=== PATIENT | female | born 1980 | race Two or more races ===

== ENCOUNTER 2020-03-04 09:24 | Emergency (ER) | payer OTHER ==
[~2020-03-04] VITALS: Ht 160 cm; Wt 68.9 kg
== END 2020-03-04 11:55 | disposition home or self-care (01) ==
LOC: ER 09:24
DX: G44.209 Tension-type headache, unspecified, not intractable (principal)

== ENCOUNTER 2021-03-17 15:27 | Emergency (ER) | payer OTHER ==
[~2021-03-17] VITALS: Ht 160 cm; Wt 65.3 kg
== END 2021-03-17 18:20 | disposition home or self-care (01) ==
LOC: ER 15:27
DX: M54.89 Other dorsalgia (principal); M41.85 Other forms of scoliosis, thoracolumbar region

== ENCOUNTER 2021-03-27 12:37 | Emergency (ER) | payer OTHER ==
[~2021-03-27] VITALS: Ht 160 cm; Wt 65.3 kg
[2021-03-27] MEDS ORDERED: ORPHENADRINE C100 MG PO (15:05)
[2021-03-27] MEDS ORDERED: DICLOFENAC SOD100 MG PO (15:05)
[2021-03-27] MEDS ORDERED: PERCOCET 5-3251 EACH PO (15:05)
[2021-03-27] MEDS ORDERED: MEDROLPACK PO (15:05)
== END 2021-03-27 15:24 | disposition home or self-care (01) ==
LOC: ER 12:37
DX: M54.32 Sciatica, left side (principal)